=== PATIENT | male | born 1995 | race Two or more races ===

== ENCOUNTER 2024-10-20 20:31 | Emergency (ER) | payer MEDICAID, SELFPAY ==
[2024-10-20] VITALS (23 sets, daily range): BP systolic 134–183; BP diastolic 87–118; PULSE 65–119; RESP 12–42; TEMP 36.8; O2SAT 93–100; BMI 38.3
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
[2024-10-20] MEDS: MORPHINE SULF INJ 10 MG/ML VIAL 8 MG IVP (21:24)
[2024-10-20] MEDS: HYDROmorphone INJ 2 MG/ML VIAL 1 MG IVP (21:43)
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
[2024-10-20] MEDS: KETAMINE 50 MG/ML VIAL 10 ML 100 MG IVP (22:51)
--- NOTE | 2024-10-20 22:56 | XR_ITS ---
Examination: Left shoulder single view TECHNIQUE: AP portable internal rotation single view FINDINGS: October 20, 2014 11:06 PM Comparison October 20, 2024 INDICATIONS: Postreduction shoulder dislocation FINDINGS: There remains anterior subcoracoid shoulder dislocation and comminuted fractures of the humeral head IMPRESSION: There remains anterior subcoracoid shoulder dislocation and fractures off the humeral head
[2024-10-21] VITALS (16 sets, daily range): BP systolic 144–195; BP diastolic 93–151; PULSE 73–136; RESP 13–35; TEMP 36.9–37.4; O2SAT 91–99
[2024-10-21] MEDS: KETAMINE 50 MG/ML VIAL 10 ML 100 MG IVP ×2 (00:16→01:47)
--- NOTE | 2024-10-21 00:29 | XR_ITS ---
Examination: AP left shoulder single view Technique one AP portable upright left shoulder single view Date and time: October 21, 2024, 0046 hours, comparison October 20, 2024 2306 hours INDICATIONS: Post reduction attempt shoulder dislocation FINDINGS: Anterior subcoracoid shoulder dislocation remains with displaced fracture fragments off the humeral head IMPRESSION: Anterior subcoracoid shoulder dislocation remains with displaced fracture fragments off the humeral head
--- NOTE | 2024-10-21 01:52 | XR_ITS ---
Examination: AP chest single view TECHNIQUE: AP portable upright chest single view Date and time: October 21, 2024, 0154 hours, comparison October 21, 2024, 45 hours INDICATIONS: Post reduction shoulder dislocation FINDINGS: Satisfactory reduction of shoulder dislocation The fracture fragment off the humeral head is in better position on the current study IMPRESSION: Successful reduction shoulder dislocation
== END 2024-10-21 03:24 | disposition home or self-care (01) ==
PROVIDERS: Emergency Provider Emergency Medicine
DX: S43.085A Other dislocation of left shoulder joint, initial encounter (principal); S42.292A Other displaced fracture of upper end of left humerus, initial encounter for closed fracture; S00.81XA Abrasion of other part of head, initial encounter; S80.212A Abrasion, left knee, initial encounter; S80.211A Abrasion, right knee, initial encounter; S60.512A Abrasion of left hand, initial encounter; S60.511A Abrasion of right hand, initial encounter; S00.83XA Contusion of other part of head, initial encounter; W17.89XA Other fall from one level to another, initial encounter; Y93.39 Activity, other involving climbing, rappelling and jumping off
CPT/HCPCS: 23650; 70450; 70486; 73020; 73030; 96374; 96375; 96376; 99283; J1171; J2270

== ENCOUNTER 2024-10-22 08:21 | Emergency (ER) | payer MEDICAID, SELFPAY ==
[2024-10-22 08:22] VITALS: BMI 38.3
[2024-10-22 08:38] VITALS: BP 141/92; PULSE 95; RESP 19; TEMP 37.4; O2SAT 97
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
[2024-10-22] MEDS: HYDROcodone/APAP 5/325 TABLET 1 TAB PO (09:13)
[2024-10-22] MEDS: AMOXICILLIN/POT CLAV 875 TABLET 1 TAB PO (09:13)
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
[2024-10-22] MEDS: KETOROLAC INJ 60 MG/2 ML VIAL 15 MG IM (10:48)
[2024-10-22] MEDS: DIPHTH,PERTUSS(ACELL),TET VAC 0.5 ML SYR- ADULT IMi (10:50)
[2024-10-22] MEDS: BACITRACIN OINT 15 GM TUBE TOP (10:52)
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
== END 2024-10-22 11:34 | disposition home or self-care (01) ==
PROVIDERS: Emergency Provider Emergency Medicine
DX: S30.810A Abrasion of lower back and pelvis, initial encounter (principal); S42.293A Other displaced fracture of upper end of unspecified humerus, initial encounter for closed fracture; S00.81XA Abrasion of other part of head, initial encounter; X58.XXXA Exposure to other specified factors, initial encounter; Z23 Encounter for immunization
CPT/HCPCS: 72125; 72128; 72131; 72170; 90471; 90715; 96372; 99283; J1885; A9270

== ENCOUNTER 2024-10-24 10:01 | Emergency (ER) | payer MEDICAID, SELFPAY ==
[2024-10-24 10:45] VITALS: BP 165/89; PULSE 82; RESP 20; TEMP 36.8; O2SAT 98
[2024-10-24 10:46] VITALS: BMI 38.3
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
== END 2024-10-24 12:38 | disposition home or self-care (01) ==
LOC: SERX 11:24
PROVIDERS: Emergency Provider Emergency Medicine
DX: S30.810A Abrasion of lower back and pelvis, initial encounter (principal); X58.XXXA Exposure to other specified factors, initial encounter
CPT/HCPCS: 99281

== ENCOUNTER 2024-12-29 08:30 | Outpatient (RCR) | payer MEDICAID, SELFPAY ==
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
--- NOTE | 2024-12-18 09:29 | PT.ODAYNRPT ---
PT Outpatient Daily Note OP Daily Note Outpatient Physical Therapy Treatment Date: 12/18/24 Visit Reasons: LEFT SHOULDER DISLOCATION Subjective: Pt shoulder continues to hurt. Pt mentioned PCP plans to order MRI soon and wants him to find his own orthopedic surgeon. Objective: Please see flow chart for list of ther ex performed Assessment: pain up to 90 deg of flexion and abduction ROM with all exercises. Post ice helped with pain and soreness Plan: Continue with PT Length of Time (minutes) of Treatment: 30 Minutes Procedure Charges Therapeutic Exercise 30 minutes: Yes
--- NOTE | 2024-12-21 12:53 | PT.ODAYNRPT ---
PT Outpatient Daily Note OP Daily Note Outpatient Physical Therapy Treatment Date: 12/21/24 Visit Reasons: LEFT SHOULDER DISLOCATION Subjective: Pt has a ortho consult on Wednesday. Pt's shoulder feels a little better with arm movement. Objective: Please see flow chart for list of ther ex performed Assessment: slight improve shoulder flexion and scaption AAROM with less pain reported Plan: Continue with PT Length of Time (minutes) of Treatment: 30 Minutes Procedure Charges Therapeutic Exercise 30 minutes: Yes
--- NOTE | 2024-12-29 08:57 | PT.ODAYNRPT ---
PT Outpatient Daily Note OP Daily Note Outpatient Physical Therapy Treatment Date: 12/29/24 Visit Reasons: LEFT SHOULDER DISLOCATION Subjective: Pt's MRI has been approved and scheduled next Wednesday. Pt's shoulder pain is less intense and notice arm movement is improving. Objective: Left Shoulder Flexion AROM: 100 deg Assessment: Pt is progressing with shoulder AROM with less pain reported. Added isometric exercise with good tolerance Plan: Continue with PT Length of Time (minutes) of Treatment: 30 Minutes Procedure Charges Therapeutic Exercise 30 minutes: Yes
== END 2024-12-29 23:59 | disposition home or self-care (01) ==
LOC: CPTX 08:30
PROVIDERS: PCP Internal Medicine Endocrinology, Diabetes & Metabolism; Referring Provider Internal Medicine Endocrinology, Diabetes & Metabolism; Visit Provider Emergency Medicine
DX: M25.512 Pain in left shoulder (principal); S42.92XD Fracture of left shoulder girdle, part unspecified, subsequent encounter for fracture with routine healing; V89.2XXD Person injured in unspecified motor-vehicle accident, traffic, subsequent encounter
CPT/HCPCS: 97110; 97162

== ENCOUNTER → 2025-01-06 | Outpatient (CLI) | payer MEDICAID, SELFPAY ==
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
== END | disposition home or self-care (01) ==
DX: M67.814 Other specified disorders of tendon, left shoulder (principal); S43.432A Superior glenoid labrum lesion of left shoulder, initial encounter; X58.XXXA Exposure to other specified factors, initial encounter
CPT/HCPCS: 73221

== ENCOUNTER 2025-01-23 09:30 | Outpatient (RCR) | payer MEDICAID, SELFPAY ==
--- NOTE | 2025-01-02 10:37 | PT.ODAYNRPT ---
PT Outpatient Daily Note OP Daily Note Outpatient Physical Therapy Treatment Date: 01/02/25 Visit Reasons: LEFT SHOULDER DISLOCATION Subjective: Pt reports L shoulder continues to be painful but ROM has improved a little. As per pt he has an MRI scheduled for this weekend. Objective: Please see flow sheet for ther ex list. Assessment: Pt demonstrates poor activity tolerance due to pain response. Plan: Continue with pOC. Length of Time (minutes) of Treatment: 30 Minutes Procedure Charges Therapeutic Exercise 30 minutes: Yes
--- NOTE | 2025-01-04 09:07 | PT.ODAYNRPT ---
PT Outpatient Daily Note OP Daily Note Outpatient Physical Therapy Treatment Date: 01/04/25 Visit Reasons: LEFT SHOULDER DISLOCATION Subjective: Pt reports shoulder is moving more but continues to have pain on the lateral part of the arm. Pt has an MRI scheduled for this Wednesday. Objective: Please see flow sheet for ther ex list. Assessment: Slow progress with interventions due to pt pain response. Plan: Continue with poC. Length of Time (minutes) of Treatment: 30 Minutes Procedure Charges Therapeutic Exercise 30 minutes: Yes
--- NOTE | 2025-01-23 10:36 | PT.ODAYNRPT ---
PT Outpatient Daily Note OP Daily Note Outpatient Physical Therapy Treatment Date: 01/23/25 Visit Reasons: LEFT SHOULDER DISLOCATION Subjective: Pt reports L shoulder is doing ok. Pt mentioned he went to see another orthopedic surgeon specialist who gave him a referral for PT and recommend pt continue with PT. Pt shared that according to the doctor his fracture healed but has a torn ligament. Pt did not ask specialist about NWB status or if he is cleared to WB. Objective: Please see flow sheet for ther ex list. Assessment: Pt tolerates AAROM interventions with minimal pain. Plan: Continue per POC. Length of Time (minutes) of Treatment: 30 Minutes Procedure Charges Therapeutic Exercise 30 minutes: Yes
== END 2025-01-28 23:59 | disposition home or self-care (01) ==
LOC: CPTX 09:30
PROVIDERS: PCP Internal Medicine Endocrinology, Diabetes & Metabolism; Referring Provider Internal Medicine Endocrinology, Diabetes & Metabolism; Visit Provider Internal Medicine Endocrinology, Diabetes & Metabolism
DX: M25.512 Pain in left shoulder (principal); S42.92XD Fracture of left shoulder girdle, part unspecified, subsequent encounter for fracture with routine healing; V89.2XXD Person injured in unspecified motor-vehicle accident, traffic, subsequent encounter
CPT/HCPCS: 97110

== ENCOUNTER 2025-01-29 13:18 | Outpatient (RCR) | payer MEDICAID, SELFPAY ==
--- NOTE | 2025-01-29 14:35 | PT.ODS1RPT ---
PT OP Progress/Discharge Note Date of Service: 01/29/25 Progress Note/DC Note Progress Note/Discharge Note: DC Note Patient Information Visit Reasons: left shoulder surgery Medical Diagnosis: Left Shoulder Dislocation; Left Humerus Tuberosity Fracture Treatment Dx #1: Left Shoulder Mobility Deficits Treatment Dx #2: Left Shoulder Weakness Service Continue Service or Discharge: Discharge Discharge Date: 01/29/25 Status Subjective: Pt mentioned he longer sees Dr Lucio in [place]. Pt is follow up with Dr Nowak for his shoulder. Pt still has pain and weakness leading to difficulty with ADLs. Pt wants to know when he can resume work. Pt is still unsure of weightbearing status of the shoulder. Objective: Left Shoulder AROM Flexion: 120 deg Abduction: 45 deg External Rotation: 45 deg Internal Rotation: 30 deg Left Shoulder MMTs: grossly 3-/5 Left Scapula MMTs: grossly 3-/5 Assessment: Pt demonstrate improvement with left shoulder mobility and strength, however, minimal progress towards goals due to weight bearing status limitation. At the moment it is unclear if patient can weight bear with the left UE or is NWB leading to minimal progress in therapy. At this time Pt will be d/c from care due to no longer seeing Dr Lucio and has been following Dr Nowak. Pt will re-start physical therapy under Pt's Eliu new PT order; thank you for your referrals. Plan: D/C home and follow up with MD CARLTON Procedure Charges Therapeutic Exercise 30 minutes: Yes
== END 2025-02-28 23:59 | disposition home or self-care (01) ==
LOC: CPTX 13:18
PROVIDERS: PCP Emergency Medicine; Referring Provider Emergency Medicine; Visit Provider Emergency Medicine
DX: M25.512 Pain in left shoulder (principal); R53.1 Weakness; S42.252D Displaced fracture of greater tuberosity of left humerus, subsequent encounter for fracture with routine healing; V48.9XXD Unspecified car occupant injured in noncollision transport accident in traffic accident, subsequent encounter
CPT/HCPCS: 97110

== ENCOUNTER → 2025-02-06 | Outpatient (CLI) | payer MEDICAID, SELFPAY ==
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
== END | disposition home or self-care (01) ==
PROVIDERS: Referring Provider Orthopaedic Surgery; Visit Provider Orthopaedic Surgery
DX: S22.42XA Multiple fractures of ribs, left side, initial encounter for closed fracture (principal); X58.XXXA Exposure to other specified factors, initial encounter; Z87.81 Personal history of (healed) traumatic fracture
CPT/HCPCS: 73030

== ENCOUNTER 2025-02-21 10:49 | Outpatient (RCR) | payer MEDICAID, SELFPAY ==
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
== END 2025-02-28 23:59 | disposition home or self-care (01) ==
LOC: CPTX 10:49
PROVIDERS: PCP Orthopaedic Surgery; Referring Provider Orthopaedic Surgery; Visit Provider Orthopaedic Surgery
DX: M25.512 Pain in left shoulder (principal); S42.252D Displaced fracture of greater tuberosity of left humerus, subsequent encounter for fracture with routine healing; S43.432D Superior glenoid labrum lesion of left shoulder, subsequent encounter; V48.9XXD Unspecified car occupant injured in noncollision transport accident in traffic accident, subsequent encounter
CPT/HCPCS: 97162